=== PATIENT | female | born 1955 | race African-American/Black ===

== ENCOUNTER → 2021-01-06 | Outpatient (CLI) | payer MEDICAID, MEDICARE ==
[2015-08-24 06:09] VITALS: BP 155/73
[~2021-01-06] MED LIST: ASPI325T8 PO; ATOR10TA60 PO; CYAN-25 PO; Dextrose 50 % In Water IV; FERR325T14 PO; Haloperidol Lactate IVP; Ipratropium/Albuterol Sulfate NEB; LEVE500T56 PO; LEVO75TA5 PO; Levetiracetam NG; METO25TA4 PO; Metoprolol Tartrate IV; Metoprolol Tartrate PO; RISP2TAB33 PO
--- NOTE | 2021-01-12 15:28 | RAD ---
DATE: 01/06/2021 1:32 PM EXAM: DIGITAL SCREEN BILAT W/CAD HISTORY: Screening COMPARISON: None. This is a baseline Bilateral full field craniocaudal and mediolateral oblique images were obtained using digital technique. This study was interpreted with the benefit of Computerized Aided Detection (CAD). FINDINGS: Breast Density: SCATTERED The breast parenchyma shows scattered fibroglandular densities. Breast parenchyma level B No suspicious masses, microcalcifications or architectural distortion is present to suggest malignancy in either breast. The visualized axillae are unremarkable. IMPRESSION: No mammographic evidence of malignancy. BI-RADS CATEGORY: 1 NEGATIVE RECOMMENDED FOLLOW-UP: 12M 12 MONTH FOLLOW-UP Annual screening mammography is recommended, unless clinically indicated sooner based on symptoms or change in physical exam. PQRS compliance statement: Patient information was entered into a reminder system with a target due date for the next mammogram. Mammography is a sensitive method for finding small breast cancers, but it does not detect them all and is not a substitute for careful clinical examination. A negative mammogram does not negate a clinically suspicious finding and should not result in delay in biopsying a clinically suspicious abnormality. "Our facility is accredited by the [employer] Mammography Program."
== END ==
LOC: MAMMO 12:57
PROVIDERS: ATTEND Internal Medicine
DX: Z12.31 Encounter for screening mammogram for malignant neoplasm of breast (principal)
CPT/HCPCS: 77067